=== PATIENT | female | born 1935 | race Caucasian/White ===

== ENCOUNTER 2018-02-14 17:36 | Emergency (ER) | payer OTHER ==
[~2018-02-14] VITALS: Ht 160 cm; Wt 70.3 kg
[2018-02-14 17:52] VITALS: BP_SYST 150
[2018-02-14 19:18] VITALS: BP_SYST 135
== END 2018-02-14 19:18 | disposition home or self-care (01) ==
LOC: SED 17:36
DX: S00.03XA Contusion of scalp, initial encounter (principal); S50.811A Abrasion of right forearm, initial encounter; G51.0 Bell's palsy; R03.0 Elevated blood-pressure reading, without diagnosis of hypertension; W01.0XXA Fall on same level from slipping, tripping and stumbling without subsequent striking against object, initial encounter; Y93.89 Activity, other specified; Y92.89 Other specified places as the place of occurrence of the external cause; Y99.8 Other external cause status
CPT/HCPCS: 70450-TC; 99284

== ENCOUNTER 2021-11-30 23:01 | Emergency (ER) | payer OTHER ==
[~2021-11-30] VITALS: Ht 160 cm; Wt 51.7 kg
--- NOTE | 2021-11-30 23:05 | NUR ---
ER in triage examining patient.
[2021-11-30 23:31] VITALS: BP_SYST 115
--- NOTE | 2021-11-30 23:31 | NUR ---
Patient brought in by family, awake, alert, oriented x 3, history of dementia, complains of left hand pain tonight. Patient denies any fall/injury. Per family patient has been diagnosed with rheumatoid arthritis. Patient reports 06/10 PS. No other remarkable symptoms noted. Patient breathing easy, respirations even and unlabored. Patient ambulatory with steady gait. Awaiting Xray of hand as ordered.
--- NOTE | 2021-11-30 23:35 | NUR ---
Patient triaged and placed in waiting room. VSS and patient appears in no acute distress at this time. Accompanied by family, awaiting available bed, and MD notified of need for MSE.
[2021-12-01] VITALS: BP_SYST 115
--- NOTE | 2021-12-01 | NUR ---
Patient given written and verbal discharge instructions given by Dr Bills and verbalizes understanding. ER MD discussed with patient the result and care provided. Patient in stable condition. ID arm band removed. No Rx given. Patient educated on pain management and to follow up with PMD. Opportunity for questions provided and answered by Dr Bills.
== END 2021-12-01 | disposition home or self-care (01) ==
LOC: SED 23:01
DX: M79.642 Pain in left hand (principal); M19.90 Unspecified osteoarthritis, unspecified site; Z90.710 Acquired absence of both cervix and uterus
CPT/HCPCS: 99283